=== PATIENT | female | born 2005 | race Caucasian/White ===

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

== ENCOUNTER 2025-02-18 21:27 | Inpatient (IN) | payer OTHER ==
[~2025-02-18] VITALS: Ht 170.2 cm; Wt 89.0 kg
[~2025-02-18 21:27] MED LIST: CEPH500C PO; NITR100C3 PO
[2025-02-18 22:04] LABS: PLATELET COUNT, AUTOMATED 271 10^3/uL (150-450)
[2025-02-18 22:07] LABS: URINE PREG TEST NEGATIVE (NEGATIVE)
[2025-02-18 22:34] LABS: AMPHETAMINES LEVEL URINE NEGATIVE (NEGATIVE); BARBITURATES URINE NEGATIVE (NEGATIVE); BENZODIAZEPINES URINE NEGATIVE (NEGATIVE); CANNABINOIDS URINE NEGATIVE (NEGATIVE); COCAINE METABOLITE URINE NEGATIVE (NEGATIVE); METHADONE URINE NEGATIVE (NEGATIVE); OPIATES URINE NEGATIVE (NEGATIVE); PHENCYCLIDINE URINE NEGATIVE (NEGATIVE)
[2025-02-18 22:36] LABS: ETHYL ALCOHOL (ETHANOL) < 0.003 % (0.000-0.010)
[2025-02-18 22:38] LABS: ALT/SGPT 18 U/L (7.0-40); AST/SGOT 13 U/L (<34); CALCIUM LEVEL 9.5 MG/DL (8.5-10.1); CARBON DIOXIDE LEVEL 22 MMOL/L (20-31); CHLORIDE LEVEL 107 MMOL/L (98-107); CREATININE FOR GFR 0.74 MG/DL (0.55-1.30); GLOMERULAR FILTRATION RATE > 90.0 (>60); POTASSIUM SERUM 3.8 MMOL/L (3.5-5.1); SALICYLATE LEVEL < 3.0 MG/DL (<30); SODIUM LEVEL 141 MMOL/L (136-145)
[2025-02-18] MEDS ORDERED: MOM 30 ML SUSPENSION UDC PO PRN (22:50)
[2025-02-18] MEDS ORDERED: ACETAMINOPHEN 325 MG TAB PO PRN (22:50)
[2025-02-18] MEDS ORDERED: MAALOX 30 ML SUSP *UDC PO PRN (22:50)
[2025-02-18] MEDS ORDERED: IBUPROFEN 400 MG TAB PO PRN (22:50)
[2025-02-18] MEDS ORDERED: ACET-907 PO (23:47)
[2025-02-18 23:49] VITALS: BP 115/57; TEMP 98.3; O2SAT 100
[2025-02-18] MEDS ORDERED: HOME MED LIST COMPLETE! XX SCH (23:50)
[2025-02-19 06:30] VITALS: BP 123/60; TEMP 98.3; O2SAT 96
[2025-02-19] MEDS: ESCITALOPRAM OXALATE 5 MG TABLET PO SCH (11:13)
[2025-02-19 15:20] VITALS: BP 118/65; TEMP 97.2; O2SAT 97
[2025-02-20 06:39] VITALS: BP 117/63; TEMP 97.8; O2SAT 100
[2025-02-20 15:51] VITALS: BP 122/68; TEMP 97.4; O2SAT 99
[2025-02-20 21:20] VITALS: BP 122/68; TEMP 97.4; O2SAT 99
[2025-02-21 06:32] VITALS: BP 124/70; TEMP 98; O2SAT 97
[2025-02-21] MEDS: ESCITALOPRAM OXALATE 5 MG TABLET PO SCH (08:22)
[2025-02-21 14:50] VITALS: BP 122/61; TEMP 97.6; O2SAT 100
[2025-02-22 06:13] VITALS: BP 135/69; TEMP 97; O2SAT 100
[2025-02-22 15:32] VITALS: BP 115/65; TEMP 97.1; O2SAT 98
[2025-02-23 06:17] VITALS: BP 105/54; TEMP 96.9; O2SAT 97
[2025-02-23] MEDS ORDERED: LEXA5TAB13 PO (07:53)
[2025-02-23 15:37] VITALS: BP 123/57; TEMP 97.2; O2SAT 99
[2025-02-23] MEDS: traZODone 50 MG TAB PO PRN (20:07)
[2025-02-24 06:28] VITALS: BP 124/59; TEMP 97.9; O2SAT 99
== END 2025-02-24 13:31 | disposition home or self-care (01) | DRG 751 ==
LOC: M ED 21:27 → M ED INP 22:47 → M PSY 23:47
PROVIDERS: ADMIT Psychiatry & Neurology Neurology; ATTEND Internal Medicine
DX: F33.1 Major depressive disorder, recurrent, moderate (principal); R45.851 Suicidal ideations; G89.29 Other chronic pain; F41.9 Anxiety disorder, unspecified; M54.9 Dorsalgia, unspecified; Z63.5 Disruption of family by separation and divorce; Z91.51 Personal history of suicidal behavior; Z81.8 Family history of other mental and behavioral disorders